=== PATIENT | female | born 1995 | race Two or more races ===

== ENCOUNTER 2023-05-21 19:42 | Emergency (ER) | payer OTHER ==
[~2023-05-21] VITALS: Ht 160 cm; Wt 63.5 kg
[2023-05-21 21:09] LABS: HEMATOCRIT 42.7 % (36.0-45.00); MEAN CELL VOLUME 84.5 fL (80.00-100.00); MEAN CORPUSCULAR HEMOGLOBIN 29.7 pg (27.00-32.0); MEAN CORPUSCULAR HGB CONC 35.1 g/dl (32.0-36.0); PLATELET COUNT 239 K/uL (150-450); RED BLOOD COUNT 5.06 M/uL (4.00-6.00); RED CELL DISTRIBUTION WIDTH 12.5 % (11.5-14.5)
[2023-05-21 21:24] LABS: ALBUMIN 3.5 gm/dL (3.4-5.0); BILIRUBIN TOTAL 0.33 mg/dL (0.3-1.2); CREATININE SERUM 0.72 mg/dL (0.55-1.02); GFR 97.91; GLOBULINA 4.3 G/DL (2.4-3.5); POTASSIUM 3.02 mEq/L (3.5-5.1); TOTAL PROTEIN 7.8 gm/dL (6.4-8.2)
[2023-05-22 00:21] LABS: AMYLASE 121 U/L (25-115)
[2023-05-22 00:30] LABS: LIPASE 240 U/L (13-75)
== END 2023-05-22 04:23 | disposition home or self-care (01) ==
LOC: ER 19:44
PROVIDERS: General Practice
DX: K52.89 Other specified noninfective gastroenteritis and colitis (principal); N83.201 Unspecified ovarian cyst, right side; Z20.822 Contact with and (suspected) exposure to COVID-19